=== PATIENT | female | born 1985 ===

== ENCOUNTER 2018-05-29 12:04 | Emergency (ER) | payer SELFPAY ==
[2018-05-29] MEDS: IBUPROFEN 200 MG TAB PO (13:44)
[2018-05-29] MEDS: ACETAMINOPHEN 500 MG TAB PO (13:44)
== END 2018-05-29 13:40 | disposition left against medical advice (07) ==
LOC: FTE 12:04
DX: J02.9 Acute pharyngitis, unspecified (principal); H92.09 Otalgia, unspecified ear
CPT/HCPCS: 99282